=== PATIENT | female | born 1945 | race African-American/Black ===

== ENCOUNTER 2018-05-11 10:52 | Inpatient (IN) | payer OTHER ==
[2018-05-11 11:25] VITALS: BMI 21.1
--- NOTE | 2018-05-11 12:47 | PDOC ---
History of Present Illness - General Chief Complaint: Injury Stated Complaint: Altered Mental Status Time Seen by Provider: 05/11/18 11:31 - History of Present Illness Initial Comments: Marisol Barba is a 73yo woman with a PMH of HTN, DM, schizophrenia, GERD, Parkinson's, facial dystonia, and seizures who presents from [facility] following a seizure today. Per notes from [facility] and EMS, she has been refusing her medications recently and apparently had a witnessed seizure. Ms Barba states that she has no idea why she was brought to the hospital though she is a poor historian. She says that she went out to smoke this morning, and while trying to light a 2nd cigarette from the first noticed that her hand/arm was shaking. She went inside and remembers asking for some ice water. The next thing she remembers is laying on her bed with EMS and SNF staff around her. Ms Barba denies any recent symptoms. She reports that she has no health problems at baseline and has not had a seizure in "many years." Past History - Past Medical History Allergies/Adverse Reactions: Allergies Allergy/AdvReac Type Severity Reaction Status Date / Time No Known Drug Allergies Allergy Verified 05/11/18 11:19 Home Medications: Ambulatory Orders Acetaminophen [Tylenol Regular Strength -] 325 mg PO Q6H PRN 11/27/12 Amlodipine Besylate [Norvasc -] 5 mg PO DAILY 11/27/12 Aspirin 81 mg PO DAILY 11/27/12 Carbidopa/Levodopa 25/100 [Sinemet 25/100 -] 1 each PO BID 11/27/12 Docusate Sodium [Colace -] 300 mg PO HS PRN 11/27/12 Entacapone [Comtan -] 200 mg PO BID 11/27/12 Escitalopram Oxalate [Lexapro -] 20 mg PO DAILY 11/27/12 Magnesium Hydrox 2400MG/30Ml [Milk Of Magnesia] 400 mg PO DAILY PRN 11/27/12 Meclizine HCl [Antivert -] 25 mg PO BID 11/27/12 Phenytoin Na Extended [Dilantin -] 100 mg PO TID 11/27/12 Polyethylene Glycol/Polyvinyl [Hypotears Eye Drops] 15 ml OP BID 11/27/12 Saxagliptin HCl/Metformin HCl [Kombiglyze Xr 2.5-1,000 mg Tab] 100 mg PO DAILY 11/27/12 Trihexyphenidyl HCl [Artane] 2 mg PO TID 11/27/12 cloNIDine HCL [Catapres -] 0.1 mg PO DAILY 11/27/12 levETIRAcetam [Keppra -] 1,000 mg PO DAILY 03/30/13 Anemia: Yes Cardiac Disorders: Yes COPD: No Diabetes: Yes (type 2) GI Disorders: Yes (GERD,CONSTIPATION) HTN: Yes Psychiatric Problems: Yes (SCHIZOPHRENIA) Seizures: Yes Other medical history: parkinsons - Immunization History Td Vaccination: Yes TDAP Vaccination: Yes Immunization Up to Date: Yes - Suicide/Smoking/Psychosocial Hx Smoking Status: No Smoking History: Never smoked Have you smoked in the past 12 months: No Information on smoking cessation initiated: No Hx Alcohol Use: No Drug/Substance Use Hx: No Review of Systems - Review of Systems Comments:: 05/11/18 12:47 Could not accurately obtain; denies any health problems *Physical Exam - Vital Signs Last Vital Signs Temp Pulse Resp BP Pulse Ox 99.5 F 95 H 18 177/99 H 99 05/11/18 11:01 05/11/18 11:01 05/11/18 11:01 05/11/18 11:01 05/11/18 11:01 - Physical Exam Comments: General: No acute distress, generalized continuos body movements. HEENT: PERRL, EOMI, dry lips, voice normal. Orofacial movements c/w tardive dyskinesia Cards: RRR, no murmur appreciated Pulm: Comfortable on room air, clear to auscultation bilaterally Abd: Soft, nontender, nondistended Ext: Atraumatic. No LE edema. Moves all extremities Vasc: Extremities WWP Skin: Normal color, no rashes or lesions Neuro: Alert, responsive, normal speech, motor/sensory grossly intact and symmetric Psych: Volatile, becomes angry/upset quickly ED Treatment Course - LABORATORY CBC & Chemistry Diagram: 05/11/18 15:07 05/11/18 13:18 - RADIOLOGY Radiology Studies Ordered: Category Date Time Status CERVICAL SPINE CT W/O CONTR [CT] Stat CT Scan 05/11/18 12:[address] WITHOUT CONTRAST [CT] Stat CT Scan 05/11/18 12:37 Ordered CHEST X-RAY PORTABLE* [RAD] Stat Radiology 05/11/18 12:37 Ordered Medical Decision Making - Medical Decision Making 05/11/18 12:38 Marisol Barba is a 73yo woman with a PMH of HTN, DM, schizophrenia, GERD, Parkinson's, facial dystonia, and seizures who presents from [facility] following a seizure today. Per the SNF, she has been refusing her medications. - Reported seizure likely due to medication noncompliance; per records is prescribed keppra 1000mg daily. Not enough information at this time to determine that she did have a seizure, may have been syncope or a fall for another reason. - No visible injury. Will CT head, c-spine to r/o - CBC, CMP, EKG, trop, coags, UA, CXR for evaluation - Will contact PMD 05/11/18 15:29 - Multiple attempts made to place an IV by nurse Peters, by me under ultrasound guidance, and by Dr Dias under US guidance. 20g IV eventually placed in left upper arm, blood sent to lab - IV infiltrated when attempt made to give IVF and IV acetaminophen - PO acetaminophen ordered. Given water for oral hydration 05/11/18 16:27 - Labs reviewed. Notable for slightly elevated trop at 0.12. No other concerning abnormalities. Trop may be elevated due to seizure, elevated HR at 95 (likely due to fever 101.8), or possibly pt's baseline - there are no other values recorded. - CT head/c-spine and CXR reviewed. No acute abnormalities appreciated. Radiology read pending - Plan to admit for additional management. 05/11/18 17:24 - Spoke to BOOKER Cordon for admission. Will accept to Dr Willoughby's service. - 5mg IM haldol and 2mg IM ativan for agitation during additional attempt to place IV Discussed with Dr Chester. Alma Shea PGY1 *DC/Admit/Observation/Transfer Diagnosis at time of Disposition: Seizure, Fever, Elevated troponin - Discharge Dispostion Decision to Admit order: Yes - Referrals Referrals: Maninder Willoughby MD [Primary Care Provider] - - Patient Instructions - Post Discharge Activity
--- NOTE | 2018-05-11 13:19 | PDOC ---
Attending Attestation - HPI HPI: 05/11/18 13:24 Patient is a 73 year old female with a significant past medical history of Anemia, Diabetes, HTN, Schizophrenia, Seizures, Parkinsons who presents to the ED with complaints of seizure episode that occurred earlier this morning. As per [facility] staff, patient has currently been non compliant with her medications for multiple days. Patient reports being outside trying to smoke when she noticed a slight tremor in her right arm. She reports walking inside when she was suddenly laying on her bed surrounded by staff and EMS. As per staff, patient was sent into the ED for further evaluation and psych evaluation. Denies chest pain, sob. Denies nausea, vomiting. Denies fevers, chills. Denies diarrhea, constipation. Denies dysuria, hematuria. Denies contact with sick individuals, out of state travelling. Denies any other symptoms. Allergies: NKDA Social history: Lives at [facility]. Current smoker. No alcohol. No illicit drugs. Surgical history: None PMD: Dr. Gisell Santacruz <Parrish Fox - Last Filed: 05/11/18 13:24> - Resident Resident Name: Alma Shea - ED Attending Attestation I have performed the following: I have examined & evaluated the patient, The case was reviewed & discussed with the resident, I agree w/resident's findings & plan, Exceptions are as noted - Physicial Exam PE: 05/11/18 13:18 GENERAL: The patient is in no acute distress, (+) involuntary movement of her neck and face. ENT: Ears normal, nares patent, oropharynx clear without exudates. Dry mucous membranes. NECK: Normal range of motion, supple, no nuchal rigidity LUNGS: Breath sounds equal, clear to auscultation bilaterally. No wheezes, and no crackles. HEART:Regular rate and rhythm, normal S1 and S2 without murmur, rub or gallop. ABDOMEN: Soft, nontender, normoactive bowel sounds. EXTREMITIES: Normal range of motion, no edema. NEUROLOGICAL: Cranial nerves II through XII grossly intact. Normal speech. No focal neurological deficits. SKIN: Warm, Dry, normal turgor, no rashes or lesions noted. - Medical Decision Making 05/11/18 13:13 Pt found to have a fever today Will do sepsis work up Pt has limited ability to give a history Briefly, she has been refusing her medications She reportedly has a seizure today Pt has no memory of this Pt has no complaints at this time 05/11/18 15:44 Laboratory Tests 03/30/13 05/11/18 05/11/18 14:00 13:18 14:49 WBC 7.6 Hgb 11.5 D Hct 35.5 Plt Count 385 D Sodium 140 Potassium 4.7 Chloride 108 H Carbon Dioxide 24 BUN 16 Creatinine 0.9 Random Glucose 118 H Troponin I 0.12 H Urine Blood Negative Urine Nitrite Negative Ur Leukocyte Esterase Negative 05/11/18 15:07 WBC 6.6 Hgb 10.6 L Hct 32.9 Plt Count 302 D Sodium Potassium Chloride Carbon Dioxide BUN Creatinine Random Glucose Troponin I Urine Blood Urine Nitrite Ur Leukocyte Esterase 05/11/18 16:35 Very difficult access Will try again Access obtained Pt persuaded to stay in the hospital for further observation Clinical impression: Seizure, initial presentation Fever, initial presentation Elevated troponin, initial presentation <Lucrecia Chester - Last Filed: 05/14/18 12:40>
[2018-05-11 13:47] LABS: INR 0.93 (0.83-1.09)
[2018-05-11 13:49] LABS: ACTIVATED PTT 20.5 SECONDS (25.2-36.5)
[2018-05-11 14:02] LABS: ALBUMIN 4.2 g/dl (3.4-5.0); ALK PHOS 57 U/L (45-117); ANION GAP 8 MMOL/L (8-16); BILIRUBIN,TOTAL 0.2 mg/dL (0.2-1); BLOOD UREA NITROGEN 16 mg/dL (7-18); CHLORIDE 108 mmol/L (98-107); CO2 24 mmol/L (21-32); CREATININE 0.9 mg/dL (0.55-1.3); GLUCOSE,RANDOM 118 mg/dL (74-106); POTASSIUM 4.7 mmol/L (3.5-5.1); SGOT/AST 14 U/L (15-37); SGPT/ALT 11 U/L (13-61); SODIUM 140 mmol/L (136-145); TOT PROT 7.3 g/dl (6.4-8.2)
--- NOTE | 2018-05-11 15:16 | EKG ---
Test Reason : Blood Pressure : / mmHG Vent. Rate : 092 BPM Atrial Rate : 092 BPM P-R Int : 168 ms QRS Dur : 082 ms QT Int : 332 ms P-R-T Axes : 075 064 062 degrees QTc Int : 410 ms POOR DATA QUALITY, INTERPRETATION MAY BE ADVERSELY AFFECTED NORMAL SINUS RHYTHM MINIMAL VOLTAGE CRITERIA FOR LVH, MAY BE NORMAL VARIANT POSSIBLE ANTERIOR INFARCT , AGE UNDETERMINED ABNORMAL ECG WHEN COMPARED WITH ECG OF 13-NOV-2000 15:54, T WAVE AMPLITUDE HAS DECREASED IN LATERAL LEADS Confirmed by GREY MOTLEY, CAROLINE ([id number]) on 05/11/2018 3:16:09 PM Referred By: Confirmed By:CAROLINE EDMONDS MD
[2018-05-11 15:17] LABS: URINE APPEARANCE CLEAR; URINE BILIRUBIN NEGATIVE (NEGATIVE); URINE COLOR YELLOW; URINE GLUCOSE (UA) NEGATIVE (NEGATIVE); URINE KETONE NEGATIVE (NEGATIVE)
[2018-05-11 15:18] LABS: URINE LEUK ESTERASE NEGATIVE (NEGATIVE); URINE NITRITE NEGATIVE (NEGATIVE); URINE PROTEIN 1+ (NEGATIVE); URINE UROBILINOGEN 0.2 mg/dL (0.2-1.0)
[2018-05-11] MEDS ORDERED: ACETAMINOPHEN INJECTION 100 ML IVPB ONE (15:20)
[2018-05-11 15:21] LABS: EPI CELLS 0.4 /HPF (0-5); URINE BACTERIA 0.5 /hpf (NEGATIVE); URINE CASTS 1 /hpf (0-8); URINE RBC 2 /hpf (0-4); URINE WBC 1 /hpf (0-5)
[2018-05-11] MEDS ORDERED: ACETAMINOPHEN 1000 MG/100 ML VIAL (NON FORMULARY) IVPB ONE (15:22)
[2018-05-11] MEDS ORDERED: SODIUM CHLORIDE 0.9% 500 ML INFUS.BAG IV ONE (15:22)
[2018-05-11 15:23] LABS: VENOUS PC02 43.3 mmHg (41-51); VENOUS PH 7.39 (7.31-7.41); VENOUS PO2 32.9 mmHg (30-40)
[2018-05-11 15:24] LABS: BASO % 1.4 % (0-2.0); EOS % 0.2 % (0-4.5); HEMATOCRIT 32.9 % (32.4-45.2); HEMOGLOBIN 10.6 GM/dL (10.7-15.3); LYMPH % 20.8 % (8-40); MCH 29.8 pg (25.7-33.7); MCHC 32.3 g/dl (32.0-36.0); MEAN CELL VOLUME 92.3 fl (80-96); MEAN PLT VOLUME 7.9 fl (7.5-11.1); MONO % 6.8 % (3.8-10.2); NEUT % 70.8 % (42.8-82.8); PLATELET COUNT 302 K/MM3 (134-434); RBC 3.57 M/mm3 (3.60-5.2); RDW 13.5 % (11.6-15.6); WHITE BLOOD COUNT 6.6 K/mm3 (4.0-10.0)
[2018-05-11] MEDS ORDERED: ACETAMINOPHEN 325 MG TABLET (FP) PO ONE (15:33)
[2018-05-11] MEDS ORDERED: ACETAMINOPHEN 325 MG TABLET (FP) ONE (15:37)
[2018-05-11] MEDS ORDERED: HALOPERIDOL LACTATE 5 MG/ML IM ONE (17:05)
--- NOTE | 2018-05-11 19:21 | HP ---
CHIEF COMPLAINT: Seizure PCP: Dr. Willoughby HISTORY OF PRESENT ILLNESS: This is a 73-year-old [facility] resident with HTN, NIDDM, schizophrenia, Parkinson's disease, current cigarette smoking, and seizures who presents from [facility] following a seizure today. Per notes from [facility] and EMS, she has been refusing her medications recently and apparently had a witnessed seizure. The patient states that she does not know when she last had a seizure, but believes it was a long time ago. She complains of mild headache, but otherwise feels well. ER course was notable for: (1) CT rain: No evidence of acute intracranial pathology. Mild ventricular dilatation, central atrophy v. NPH (2) CT cervical spine: C4-5 disc herniation of indeterminate age (3) CXR: Clear lungs (4) Troponin 0.12 (5) Temp 101.8, HR 95 (6) UA neg for leukocyte esterase Recent Travel: None Social History: Smoking: Smokes 6 cigarettes daily Alcohol: Denies Drugs: Denies Family History: Non-contributory to this admission Allergies No Known Drug Allergies Allergy (Verified 05/11/18 11:19) HOME MEDICATIONS: Home Medications Medication Instructions Recorded Acetaminophen [Tylenol Regular 325 mg PO Q6H PRN 11/27/12 Strength -] Amlodipine Besylate [Norvasc -] 5 mg PO DAILY 11/27/12 Aspirin 81 mg PO DAILY 11/27/12 Carbidopa/Levodopa 25/100 [Sinemet 1 each PO BID 11/27/12 25/100 -] Docusate Sodium [Colace -] 300 mg PO HS PRN 11/27/12 Entacapone [Comtan -] 200 mg PO BID 11/27/12 Escitalopram Oxalate [Lexapro -] 20 mg PO DAILY 11/27/12 Magnesium Hydrox 2400MG/30Ml [Milk 400 mg PO DAILY PRN 11/27/12 Of Magnesia] Meclizine HCl [Antivert -] 25 mg PO BID 11/27/12 Phenytoin Na Extended [Dilantin -] 100 mg PO TID 11/27/12 Polyethylene Glycol/Polyvinyl 15 ml OP BID 11/27/12 [Hypotears Eye Drops] Saxagliptin HCl/Metformin HCl 100 mg PO DAILY 11/27/12 [Kombiglyze Xr 2.5-1,000 mg Tab] Trihexyphenidyl HCl [Artane] 2 mg PO TID 11/27/12 cloNIDine HCL [Catapres -] 0.1 mg PO DAILY 11/27/12 levETIRAcetam [Keppra -] 1,000 mg PO DAILY 03/30/13 Alendronate Sodium/Vitamin D3 1 each PO Q7D 05/11/18 [Fosamax Plus D 70 mg-5,600 Iu vIT d] Ergocalciferol (Vitamin D2) 50,000 unit PO 05/11/18 [Vitamin D2] Glipizide 5 mg PO DAILY 05/11/18 Mag Hydrox/Aluminum Hyd/Simeth 200 mg PO TID 05/11/18 [[place] Liquid] Metformin HCl [Glucophage] 1,000 mg PO BID 05/11/18 Sitagliptin Phosphate [Januvia] 100 mg PO DAILY 05/11/18 levETIRAcetam [Keppra -] 500 mg PO HS 05/11/18 REVIEW OF SYSTEMS CONSTITUTIONAL: Absent: fever, chills, diaphoresis, generalized weakness, malaise, loss of appetite, weight change HEENT: Absent: rhinorrhea, nasal congestion, throat pain, throat swelling, difficulty swallowing, mouth swelling, ear pain, eye pain, visual changes CARDIOVASCULAR: Absent: chest pain, syncope, palpitations, irregular heart rate, lightheadedness , peripheral edema RESPIRATORY: Absent: cough, shortness of breath, dyspnea with exertion, orthopnea, wheezing, stridor, hemoptysis GASTROINTESTINAL: Absent: abdominal pain, abdominal distension, nausea, vomiting, diarrhea, constipation, melena, hematochezia GENITOURINARY: Absent: dysuria, frequency, urgency, hesitancy, hematuria, flank pain, genital pain MUSCULOSKELETAL: Absent: myalgia, arthralgia, joint swelling, back pain, neck pain SKIN: Absent: rash, itching, pallor HEMATOLOGIC/IMMUNOLOGIC: Absent: easy bleeding, easy bruising, lymphadenopathy, frequent infections ENDOCRINE: Absent: unexplained weight gain, unexplained weight loss, heat intolerance, cold intolerance NEUROLOGIC: Absent: headache, focal weakness or paresthesias, dizziness, unsteady gait, seizure, mental status changes, bladder or bowel incontinence PSYCHIATRIC: Absent: anxiety, depression, suicidal or homicidal ideation, hallucinations. PHYSICAL EXAMINATION Vital Signs - 24 hr 05/11/18 05/11/18 05/11/18 11:01 12:59 18:07 Temperature 99.5 F 101.8 F H 99.5 F Pulse Rate 95 H Respiratory 18 Rate Blood Pressure 177/99 H O2 Sat by Pulse 99 Oximetry (%) GENERAL: Awake, alert, oriented to person and place, no distress. EYES: Pupils equal, round and reactive to light, extraocular movements intact, sclera anicteric, conjunctiva clear. No lid lag. EARS, NOSE, THROAT: Ears normal, nares patent, oropharynx clear without exudates. Moist mucous membranes. NECK: Normal range of motion, supple without lymphadenopathy, JVD, or masses. LUNGS: Breath sounds equal, clear to auscultation bilaterally. No wheezes, and no crackles. No accessory muscle use. HEART: Regular rate and rhythm, normal S1 and S2 without murmur, rub or gallop. ABDOMEN: Soft, nontender, not distended, normoactive bowel sounds, no guarding, no rebound, no masses. No hepatomegaly or splenomegaly. MUSCULOSKELETAL: Normal range of motion at all joints. No bony deformities or tenderness. No CVA tenderness. UPPER EXTREMITIES: 2+ pulses, warm, well-perfused. No cyanosis. No clubbing. No peripheral edema. LOWER EXTREMITIES: 2+ pulses, warm, well-perfused. No calf tenderness. No peripheral edema. NEUROLOGICAL: Facial dystonia. Cranial nerves II-XII intact. Normal speech. PSYCHIATRIC: Cooperative. Appropriate mood and affect. SKIN: Warm, dry, normal turgor, small abrasion above left eyebrow. Laboratory Results - last 24 hr 05/11/18 05/11/18 05/11/18 13:18 13:18 14:49 WBC RBC Hgb Hct MCV MCH MCHC RDW Plt Count MPV Absolute Neuts (auto) Neutrophils % Lymphocytes % Monocytes % Eosinophils % Basophils % Nucleated RBC % PT with INR 11.00 INR 0.93 PTT (Actin FS) 20.5 L VBG pH POC VBG pCO2 POC VBG pO2 VBG HCO3 VBG O2 Sat (Tony) VBG Base Excess Sodium 140 Potassium 4.7 Chloride 108 H Carbon Dioxide 24 Anion Gap 8 BUN 16 Creatinine 0.9 Creat Clearance w eGFR 61.55 Random Glucose 118 H Lactic Acid Calcium 9.0 Total Bilirubin 0.2 AST 14 L ALT 11 L Alkaline Phosphatase 57 Creatine Kinase 127 Troponin I 0.12 H Total Protein 7.3 Albumin 4.2 Urine Color Yellow Urine Appearance Clear Urine pH 6.0 Ur Specific Hollis 1.015 Urine Protein 1+ H Urine Glucose (UA) Negative Urine Ketones Negative Urine Blood Negative Urine Nitrite Negative Urine Bilirubin Negative Urine Urobilinogen 0.2 Ur Leukocyte Esterase Negative Urine WBC (Auto) 1 Urine RBC (Auto) 2 Urine Casts (Auto) 1 U Epithel Cells (Auto) 0.4 Urine Bacteria (Auto) 0.5 05/11/18 05/11/18 05/11/18 15:07 15:07 15:07 WBC 6.6 RBC 3.57 L Hgb 10.6 L Hct 32.9 MCV 92.3 MCH 29.8 MCHC 32.3 RDW 13.5 Plt Count 302 D MPV 7.9 Absolute Neuts (auto) 4.7 Neutrophils % 70.8 Lymphocytes % 20.8 D Monocytes % 6.8 Eosinophils % 0.2 Basophils % 1.4 Nucleated RBC % 0 PT with INR INR PTT (Actin FS) VBG pH 7.39 POC VBG pCO2 43.3 POC VBG pO2 32.9 VBG HCO3 25.4 VBG O2 Sat (Tony) 57.3 L VBG Base Excess 0.7 Sodium Potassium Chloride Carbon Dioxide Anion Gap BUN Creatinine Creat Clearance w eGFR Random Glucose Lactic Acid 1.0 Calcium Total Bilirubin AST ALT Alkaline Phosphatase Creatine Kinase Troponin I Total Protein Albumin Urine Color Urine Appearance Urine pH Ur Specific Hollis Urine Protein Urine Glucose (UA) Urine Ketones Urine Blood Urine Nitrite Urine Bilirubin Urine Urobilinogen Ur Leukocyte Esterase Urine WBC (Auto) Urine RBC (Auto) Urine Casts (Auto) U Epithel Cells (Auto) Urine Bacteria (Auto) ASSESSMENT/PLAN: 73-year-old female s/p seizure with elevated troponin level. Problem List - Problem (1) Seizure Assessment/Plan: -Continue Keppra -Per SNF records and RN patient no longer on Dilantin -Send serum AED levels -Seizure precautions Code(s): R56.9 - UNSPECIFIED CONVULSIONS (2) Elevated troponin Assessment/Plan: -Not consistent with acute coronary syndrome, more likely secondary to seizure/ demand -Trend trops q8h -Monitor on telemetry -IV hydration -ASA 81mg daily Code(s): R74.8 - ABNORMAL LEVELS OF OTHER SERUM ENZYMES (3) Fever Assessment/Plan: -No clear infectious source, ?secondary to post-ictal state -Follow up blood and urine cultures -Trend temp/WBC Code(s): R50.9 - FEVER, UNSPECIFIED (4) Hypertension Assessment/Plan: -Above goal -Per SNF documentation and conversation with RN Vicki, patient no longer receiving any HTN meds because she refuses -Will attempt to resume amlodipine 5mg which patient was previously on Code(s): I10 - ESSENTIAL (PRIMARY) HYPERTENSION (5) Parkinson disease Assessment/Plan: -No meds per records/RN Code(s): G20 - PARKINSON'S DISEASE (6) DVT prophylaxis Assessment/Plan: -Moderate risk -Enoxaparin Code(s): ZDC0123 - Visit type - Emergency Visit Emergency Visit: Yes ED Registration Date: 05/11/18 Care time: The patient presented to the Emergency Department on the above date and was hospitalized for further evaluation of their emergent condition. - New Patient This patient is new to me today: Yes Date on this admission: 05/11/18 - Critical Care Critical Care patient: No
[2018-05-11] MEDS ORDERED: ACETAMINOPHEN 325 MG TABLET (FP) PO PRN (19:52)
[2018-05-11] MEDS ORDERED: ONDANSETRON 4 MG/2 ML VIAL IVPUSH PRN (19:52)
[2018-05-11] MEDS ORDERED: DOCUSATE SODIUM 100 MG CAPSULE (FP) PO PRN (19:57)
[2018-05-11] MEDS ORDERED: metFORMIN HCL 500 MG TABLET (FP) PO SCH (20:15)
[2018-05-11] MEDS ORDERED: metFORMIN HCL 500 MG TABLET (FP) ONE (20:35)
[2018-05-11] MEDS ORDERED: SODIUM CHLORIDE 1,000 ML IV SCH (21:45)
[2018-05-11] MEDS ORDERED: PHENYTOIN NA EXTENDED 100 MG CAPSULE (FP) PO SCH (22:00)
[2018-05-11] MEDS ORDERED: MECLIZINE HCL 25 MG TABLET (FP) PO SCH (22:00)
[2018-05-11] MEDS ORDERED: CARBIDOPA/LEVODOPA 25/100 TABLET (FP) PO SCH (22:00)
[2018-05-11] MEDS ORDERED: levETIRAcetam 500 MG TABLET (FP) PO SCH (22:00)
[2018-05-11] MEDS: BACITRACIN 15 GM TUBE TOPICAL OINTMENT TP SCH (23:25)
[2018-05-11] MEDS: ENTACAPONE 200 MG TABLET PO SCH (23:26)
[2018-05-11] MEDS: TRIHEXYPHENIDYL HCL 2 MG TABLET PO SCH (23:26)
[2018-05-11] MEDS: ARTIFICIAL TEARS (POLYVINYL ALCOHOL) OPTH DROPS OU SCH (23:39)
[2018-05-12] MEDS: TRIHEXYPHENIDYL HCL 2 MG TABLET PO SCH (06:51)
[2018-05-12] MEDS ORDERED: PT OWN MED DRAWER 7, Y5N ONE ×2 (06:59→11:22)
[2018-05-12] MEDS ORDERED: sitaGLIPtin PHOSPHATE 100 MG TABLET (FP) PO SCH (07:00)
[2018-05-12] MEDS ORDERED: glipiZIDE 5 MG TABLET (FP) PO SCH (07:00)
[2018-05-12 07:49] LABS: BASO % 3.3 % (0-2.0); EOS % 2.1 % (0-4.5); HEMATOCRIT 32.1 % (32.4-45.2); HEMOGLOBIN 10.4 GM/dL (10.7-15.3); LYMPH % 38.6 % (8-40); MCH 29.9 pg (25.7-33.7); MCHC 32.3 g/dl (32.0-36.0); MEAN CELL VOLUME 92.6 fl (80-96); MEAN PLT VOLUME 8.6 fl (7.5-11.1); PLATELET COUNT 263 K/MM3 (134-434); RBC 3.46 M/mm3 (3.60-5.2); RDW 13.3 % (11.6-15.6); WHITE BLOOD COUNT 4.5 K/mm3 (4.0-10.0)
[2018-05-12 08:29] LABS: ALBUMIN 3.8 g/dl (3.4-5.0); ALK PHOS 56 U/L (45-117); ANION GAP 9 MMOL/L (8-16); BILIRUBIN,TOTAL 0.9 mg/dL (0.2-1); BLOOD UREA NITROGEN 15 mg/dL (7-18); CALCIUM 8.2 mg/dL (8.5-10.1); CHLORIDE 108 mmol/L (98-107); CO2 24 mmol/L (21-32); CREATININE 0.8 mg/dL (0.55-1.3); GLUCOSE,RANDOM 90 mg/dL (74-106); MAGNESIUM 1.9 mg/dL (1.8-2.4); POTASSIUM 4.2 mmol/L (3.5-5.1); SGOT/AST 14 U/L (15-37); SGPT/ALT 12 U/L (13-61); SODIUM 141 mmol/L (136-145); TOT PROT 6.7 g/dl (6.4-8.2)
[2018-05-12] MEDS ORDERED: amLODIPine BESYLATE 5 MG TABLET (FP) PO SCH (10:00)
[2018-05-12] MEDS ORDERED: ESCITALOPRAM OXALATE 20 MG TABLET (FP) PO SCH (10:00)
[2018-05-12] MEDS ORDERED: ASPIRIN 81 MG CHEWABLE TABLETS PO SCH (10:00)
[2018-05-12] MEDS ORDERED: levETIRAcetam 500 MG TABLET (FP) PO SCH (10:00)
[2018-05-12] MEDS ORDERED: cloNIDine HCL 0.1 MG TABLET PO SCH (10:00)
--- NOTE | 2018-05-12 10:08 | PN ---
Progress Note (short form) - Note Progress Note: Events noted awake and alert c/o pain in gums pt refuses her meds in [facility] No headaches Noted elevated temps Vital Signs - 24 hr 05/11/18 05/11/18 05/11/18 12:59 18:07 19:15 Temperature 101.8 F H 99.5 F Pulse Rate Pulse Rate [ 77 Apical] Respiratory 20 Rate Blood Pressure Blood Pressure 152/78 [Right Arm] O2 Sat by Pulse 99 Oximetry (%) 05/11/18 05/11/18 05/12/18 19:38 21:00 01:55 Temperature 98.8 F 98.2 F Pulse Rate 72 65 Pulse Rate [ Apical] Respiratory 18 18 Rate Blood Pressure 137/81 134/67 Blood Pressure [Right Arm] O2 Sat by Pulse 99 98 Oximetry (%) 05/12/18 05:00 Temperature 98.4 F Pulse Rate 69 Pulse Rate [ Apical] Respiratory 18 Rate Blood Pressure 127/63 Blood Pressure [Right Arm] O2 Sat by Pulse Oximetry (%) Current Medications Generic Name Dose Route Start Last Admin Trade Name Freq PRN Reason Stop Dose Admin Acetaminophen 650 mg 05/11/18 19:52 05/12/18 06:50 Tylenol - PO 650 mg Q4H PRN Administration FEVER Amlodipine Besylate 5 mg 05/12/18 10:00 Norvasc - PO DAILY RUTHIE Artificial Tears 1 drop 05/11/18 22:00 05/11/18 23:39 Artificial Tears OU Not Given BID RUTHIE Aspirin 81 mg 05/12/18 10:00 Asa - PO DAILY RUTHIE Bacitracin 1 applic 05/11/18 23:15 05/11/18 23:25 Bacitracin - TP 1 applic BID RUTHIE Administration Docusate Sodium 300 mg 05/11/18 19:57 Colace - PO HS PRN CONSTIPATION Enoxaparin Sodium 40 mg 05/12/18 10:00 Lovenox - SQ DAILY RUTHIE Entacapone 200 mg 05/11/18 22:00 05/11/18 23:26 Comtan - PO 200 mg BID RUTHIE Administration Escitalopram Oxalate 20 mg 05/12/18 10:00 Lexapro - PO DAILY RUTHIE Glipizide 5 mg 05/12/18 07:00 Glucotrol - PO DAILY@0700 RUTHIE Sodium Chloride 1,000 mls @ 83 mls/hr 05/11/18 21:45 04/03/19 23:24 Normal Saline - IV 83 mls/hr ASDIR RUTHIE Administration Metronidazole 500 mg in 100 mls @ 100 mls/hr 05/12/18 10:15 Flagyl 500mg Premixed Ivpb - IVPB Q8H-IV RUTHIE Levetiracetam 500 mg 05/11/18 22:00 05/11/18 23:25 Keppra - PO 500 mg HS RUTHIE Administration Levetiracetam 1,000 mg 05/12/18 10:00 Keppra - PO DAILY RUTHIE Metformin HCl 1,000 mg 05/11/18 20:15 05/11/18 20:53 Glucophage - PO 1,000 mg BIDAC RUTHIE Administration Ondansetron HCl 4 mg 05/11/18 19:52 Zofran Injection IVPUSH Q6H PRN NAUSEA Sitagliptin Phosphate 100 mg 05/12/18 07:00 Januvia - PO DAILY@0700 RUTHIE Trihexyphenidyl HCl 2 mg 05/11/18 22:00 05/12/18 06:51 Artane - PO 2 mg TID RUTHIE Administration Laboratory Results - last 24 hr 05/11/18 05/11/18 05/11/18 13:18 13:18 14:49 WBC RBC Hgb Hct MCV MCH MCHC RDW Plt Count MPV Absolute Neuts (auto) Neutrophils % Lymphocytes % Monocytes % Eosinophils % Basophils % Nucleated RBC % PT with INR 11.00 INR 0.93 PTT (Actin FS) 20.5 L VBG pH POC VBG pCO2 POC VBG pO2 VBG HCO3 VBG O2 Sat (Tony) VBG Base Excess Sodium 140 Potassium 4.7 Chloride 108 H Carbon Dioxide 24 Anion Gap 8 BUN 16 Creatinine 0.9 Creat Clearance w eGFR 61.55 POC Glucometer Random Glucose 118 H Lactic Acid Calcium 9.0 Magnesium Total Bilirubin 0.2 AST 14 L ALT 11 L Alkaline Phosphatase 57 Creatine Kinase 127 Troponin I 0.12 H Total Protein 7.3 Albumin 4.2 Urine Color Yellow Urine Appearance Clear Urine pH 6.0 Ur Specific [place] 1.015 Urine Protein 1+ H Urine Glucose (UA) Negative Urine Ketones Negative Urine Blood Negative Urine Nitrite Negative Urine Bilirubin Negative Urine Urobilinogen 0.2 Ur Leukocyte Esterase Negative Urine WBC (Auto) 1 Urine RBC (Auto) 2 Urine Casts (Auto) 1 U Epithel Cells (Auto) 0.4 Urine Bacteria (Auto) 0.5 Phenytoin 05/11/18 05/11/18 05/11/18 15:07 15:07 15:07 WBC 6.6 RBC 3.57 L Hgb 10.6 L Hct 32.9 MCV 92.3 MCH 29.8 MCHC 32.3 RDW 13.5 Plt Count 302 D MPV 7.9 Absolute Neuts (auto) 4.7 Neutrophils % 70.8 Lymphocytes % 20.8 D Monocytes % 6.8 Eosinophils % 0.2 Basophils % 1.4 Nucleated RBC % 0 PT with INR INR PTT (Actin FS) VBG pH 7.39 POC VBG pCO2 43.3 POC VBG pO2 32.9 VBG HCO3 25.4 VBG O2 Sat (Tony) 57.3 L VBG Base Excess 0.7 Sodium Potassium Chloride Carbon Dioxide Anion Gap BUN Creatinine Creat Clearance w eGFR POC Glucometer Random Glucose Lactic Acid 1.0 Calcium Magnesium Total Bilirubin AST ALT Alkaline Phosphatase Creatine Kinase Troponin I Total Protein Albumin Urine Color Urine Appearance Urine pH Ur Specific [place] Urine Protein Urine Glucose (UA) Urine Ketones Urine Blood Urine Nitrite Urine Bilirubin Urine Urobilinogen Ur Leukocyte Esterase Urine WBC (Auto) Urine RBC (Auto) Urine Casts (Auto) U Epithel Cells (Auto) Urine Bacteria (Auto) Phenytoin 05/12/18 05/12/18 05/12/18 05:30 05:30 05:30 WBC 4.5 RBC 3.46 L Hgb 10.4 L Hct 32.1 L MCV 92.6 MCH 29.9 MCHC 32.3 RDW 13.3 Plt Count 263 MPV 8.6 Absolute Neuts (auto) 2.0 Neutrophils % 45.0 D Lymphocytes % 38.6 D Monocytes % 11.0 H Eosinophils % 2.1 D Basophils % 3.3 H Nucleated RBC % 0 PT with INR INR PTT (Actin FS) VBG pH POC VBG pCO2 POC VBG pO2 VBG HCO3 VBG O2 Sat (Tony) VBG Base Excess Sodium 141 Potassium 4.2 Chloride 108 H Carbon Dioxide 24 Anion Gap 9 BUN 15 Creatinine 0.8 Creat Clearance w eGFR 70.51 POC Glucometer Random Glucose 90 Lactic Acid Calcium 8.2 L Magnesium 1.9 Total Bilirubin 0.9 AST 14 L ALT 12 L Alkaline Phosphatase 56 Creatine Kinase Troponin I 0.15 H Total Protein 6.7 Albumin 3.8 Urine Color Urine Appearance Urine pH Ur Specific [place] Urine Protein Urine Glucose (UA) Urine Ketones Urine Blood Urine Nitrite Urine Bilirubin Urine Urobilinogen Ur Leukocyte Esterase Urine WBC (Auto) Urine RBC (Auto) Urine Casts (Auto) U Epithel Cells (Auto) Urine Bacteria (Auto) Phenytoin < 0.4 L 05/12/18 06:46 WBC RBC Hgb Hct MCV MCH MCHC RDW Plt Count MPV Absolute Neuts (auto) Neutrophils % Lymphocytes % Monocytes % Eosinophils % Basophils % Nucleated RBC % PT with INR INR PTT (Actin FS) VBG pH POC VBG pCO2 POC VBG pO2 VBG HCO3 VBG O2 Sat (Tony) VBG Base Excess Sodium Potassium Chloride Carbon Dioxide Anion Gap BUN Creatinine Creat Clearance w eGFR POC Glucometer 95 Random Glucose Lactic Acid Calcium Magnesium Total Bilirubin AST ALT Alkaline Phosphatase Creatine Kinase Troponin I Total Protein Albumin Urine Color Urine Appearance Urine pH Ur Specific [place] Urine Protein Urine Glucose (UA) Urine Ketones Urine Blood Urine Nitrite Urine Bilirubin Urine Urobilinogen Ur Leukocyte Esterase Urine WBC (Auto) Urine RBC (Auto) Urine Casts (Auto) U Epithel Cells (Auto) Urine Bacteria (Auto) Phenytoin S1 s2 RRR Lungs clear Oral cavity-- no lesions, swelling noted Abd- soft, NT no edema PLAN r/o aspiration start Flagyl IV blood cultures pending urine culture negative currently afebrile Neurology and cardiology eval trend cardiac enzymes Problem List - Problems (1) Elevated troponin Code(s): R74.8 - ABNORMAL LEVELS OF OTHER SERUM ENZYMES (2) Fever Code(s): R50.9 - FEVER, UNSPECIFIED (3) Hypertension Code(s): I10 - ESSENTIAL (PRIMARY) HYPERTENSION (4) Parkinson disease Code(s): G20 - PARKINSON'S DISEASE (5) Seizure Code(s): R56.9 - UNSPECIFIED CONVULSIONS (6) Seizure disorder Code(s): G40.909 - EPILEPSY, UNSP, NOT INTRACTABLE, WITHOUT STATUS EPILEPTICUS
--- NOTE | 2018-05-12 11:22 | CON.CARD ---
Cardiology Consult (text) - Consultation Consultation Note: cc: seizure hpi: 73 f hx htn, parkinsons, seizures, dm, sent [facility] [place]. No cp sob palps dizzy loc pnd orthopnea le edema. Feeling well now. Elevated trop so cardio eval requested. pmh: per hpi psh: nc social: +tob fam: no premature cad ros: per hpi; no nvd fever; all others normal meds: Home Medications Medication Instructions Recorded Acetaminophen [Tylenol Regular 325 mg PO Q6H PRN 11/27/12 Strength -] Amlodipine Besylate [Norvasc -] 5 mg PO DAILY 11/27/12 Aspirin 81 mg PO DAILY 11/27/12 Carbidopa/Levodopa [Sinemet 1 each PO BID 11/27/12 -] Docusate Sodium [Colace -] 300 mg PO HS PRN 11/27/12 Entacapone [Comtan -] 200 mg PO BID 11/27/12 Escitalopram Oxalate [Lexapro -] 20 mg PO DAILY 11/27/12 Magnesium Hydrox 2400MG/30Ml [Milk 400 mg PO DAILY PRN 11/27/12 Of Magnesia] Meclizine HCl [Antivert -] 25 mg PO BID 11/27/12 Phenytoin Na Extended [Dilantin -] 100 mg PO TID 11/27/12 Polyethylene Glycol/Polyvinyl 15 ml OP BID 11/27/12 [Hypotears Eye Drops] Saxagliptin HCl/Metformin HCl 100 mg PO DAILY 11/27/12 [Kombiglyze Xr 2.5-1,000 mg Tab] Trihexyphenidyl HCl [Artane] 2 mg PO TID 11/27/12 cloNIDine HCL [Catapres -] 0.1 mg PO DAILY 11/27/12 levETIRAcetam [Keppra -] 1,000 mg PO DAILY 03/30/13 Alendronate Sodium/Vitamin D3 1 each PO Q7D 05/11/18 [Fosamax Plus D 70 mg-5,600 Iu vIT d] Ergocalciferol (Vitamin D2) 50,000 unit PO WEEKLY MDD WEEKLY 05/11/18 [Vitamin D2] ON WEDNESDAY Glipizide 5 mg PO DAILY 05/11/18 Mag Hydrox/Aluminum Hyd/Simeth 200 mg PO TID 05/11/18 [Kimber-[place] Liquid] Metformin HCl [Glucophage] 1,000 mg PO BID 05/11/18 Sitagliptin Phosphate [Januvia] 100 mg PO DAILY 05/11/18 levETIRAcetam [Keppra -] 500 mg PO HS 05/11/18 Vital Signs Period Temp Pulse Resp BP Sys/Talbert Pulse Ox Last 24 Hr 98.2 F-101.8 F 65-77 18-20 127-152/63-81 98-99 nad no jvd rrr s1s2 no mrg cta bl nl eff aaox3 no le e/c/c abd nt nd pos bs no jaundice diaphoresis pos dp pt no carotid bruits Laboratory Last Values WBC 4.5 K/mm3 (4.0-10.0) 05/12/18 05:30 RBC 3.46 M/mm3 (3.60-5.2) L 05/12/18 05:30 Hgb 10.4 GM/dL (10.7-15.3) L 05/12/18 05:30 Hct 32.1 % (32.4-45.2) L 05/12/18 05:30 MCV 92.6 fl (80-96) 05/12/18 05:30 MCH 29.9 pg (25.7-33.7) 05/12/18 05:30 MCHC 32.3 g/dl (32.0-36.0) 05/12/18 05:30 RDW 13.3 % (11.6-15.6) 05/12/18 05:30 Plt Count 263 K/MM3 (134-434) 05/12/18 05:30 MPV 8.6 fl (7.5-11.1) 05/12/18 05:30 Absolute Neuts (auto) 2.0 K/mm3 (1.5-8.0) 05/12/18 05:30 Neutrophils % 45.0 % (42.8-82.8) D 05/12/18 05:30 Lymphocytes % 38.6 % (8-40) D 05/12/18 05:30 Monocytes % 11.0 % (3.8-10.2) H 05/12/18 05:30 Eosinophils % 2.1 % (0-4.5) D 05/12/18 05:30 Basophils % 3.3 % (0-2.0) H 05/12/18 05:30 Nucleated RBC % 0 % (0-0) 05/12/18 05:30 PT with INR 11.00 SEC (9.7-13.0) 05/11/18 13:18 INR 0.93 (0.83-1.09) 05/11/18 13:18 PTT (Actin FS) 20.5 SECONDS (25.2-36.5) L 05/11/18 13:18 VBG pH 7.39 (7.31-7.41) 05/11/18 15:07 POC VBG pCO2 43.3 mmHg (41-51) 05/11/18 15:07 POC VBG pO2 32.9 mmHg (30-40) 05/11/18 15:07 VBG HCO3 25.4 mmol/L (23-29) 05/11/18 15:07 VBG O2 Sat (Tony) 57.3 % (70-80) L 05/11/18 15:07 VBG Base Excess 0.7 meq/l (-2-2) 05/11/18 15:07 Sodium 141 mmol/L (136-145) 05/12/18 05:30 Potassium 4.2 mmol/L (3.5-5.1) 05/12/18 05:30 Chloride 108 mmol/L (98-107) H 05/12/18 05:30 Carbon Dioxide 24 mmol/L (21-32) 05/12/18 05:30 Anion Gap 9 MMOL/L (8-16) 05/12/18 05:30 BUN 15 mg/dL (7-18) 05/12/18 05:30 Creatinine 0.8 mg/dL (0.55-1.3) 05/12/18 05:30 Creat Clearance w eGFR 70.51 (>60) 05/12/18 05:30 POC Glucometer 95 UNITS (80-120) 05/12/18 06:46 Random Glucose 90 mg/dL (74-106) 05/12/18 05:30 Lactic Acid 1.0 mmol/L (0.4-2.0) 05/11/18 15:07 Calcium 8.2 mg/dL (8.5-10.1) L 05/12/18 05:30 Magnesium 1.9 mg/dL (1.8-2.4) 05/12/18 05:30 Total Bilirubin 0.9 mg/dL (0.2-1) 05/12/18 05:30 AST 14 U/L (15-37) L 05/12/18 05:30 ALT 12 U/L (13-61) L 05/12/18 05:30 Alkaline Phosphatase 56 U/L (45-117) 05/12/18 05:30 Creatine Kinase 127 U/L (26-192) 05/11/18 13:18 Troponin I 0.15 ng/ml (0.00-0.05) H 05/12/18 05:30 Total Protein 6.7 g/dl (6.4-8.2) 05/12/18 05:30 Albumin 3.8 g/dl (3.4-5.0) 05/12/18 05:30 Urine Color Yellow 05/11/18 14:49 Urine Appearance Clear 05/11/18 14:49 Urine pH 6.0 (5.0-8.0) 05/11/18 14:49 Ur Specific [place] 1.015 (1.010-1.035) 05/11/18 14:49 Urine Protein 1+ (NEGATIVE) H 05/11/18 14:49 Urine Glucose (UA) Negative (NEGATIVE) 05/11/18 14:49 Urine Ketones Negative (NEGATIVE) 05/11/18 14:49 Urine Blood Negative (NEGATIVE) 05/11/18 14:49 Urine Nitrite Negative (NEGATIVE) 05/11/18 14:49 Urine Bilirubin Negative (NEGATIVE) 05/11/18 14:49 Urine Urobilinogen 0.2 mg/dL (0.2-1.0) 05/11/18 14:49 Ur Leukocyte Esterase Negative (NEGATIVE) 05/11/18 14:49 Urine WBC (Auto) 1 /hpf (0-5) 05/11/18 14:49 Urine RBC (Auto) 2 /hpf (0-4) 05/11/18 14:49 Urine Casts (Auto) 1 /hpf (0-8) 05/11/18 14:49 U Epithel Cells (Auto) 0.4 /HPF (0-5) 05/11/18 14:49 Urine Bacteria (Auto) 0.5 /hpf (NEGATIVE) 05/11/18 14:49 Phenytoin < 0.4 ug/ml (10.0-20.0) L 05/12/18 05:30 ecg: sr, nl intervals, no ischemic changes cxr: clear lungs tele: sr a/p: 73 f hx htn, parkinsons, seizures, dm, sent [facility]. seizure: -neuro eval pending htn: -cont ccb elevated trops: -borderline trop elevation with flat trend and nl ck, not c/w acs -ecg unremarkable -echo pending, if benign then no further cardiac testing needed at this time
[2018-05-12] MEDS: ARTIFICIAL TEARS (POLYVINYL ALCOHOL) OPTH DROPS OU SCH (13:03)
[2018-05-12] MEDS: BACITRACIN 15 GM TUBE TOPICAL OINTMENT TP SCH (13:04)
[2018-05-12] MEDS: ENTACAPONE 200 MG TABLET PO SCH (13:05)
[2018-05-12] MEDS: ENOXAPARIN NA (PORCINE) 40 MG/0.4 ML DISP.SYRIN SQ SCH ×2 (13:05→13:17)
--- NOTE | 2018-05-12 13:46 | ECHO ---
Name: BENEDICT GOMEZ Exam:Adult Echocardiogram Study Date: 05/12/2018 11:21 AM Age: 73 yrs Reason For Study: ELEVATED TROPONINS Height: 65 in Weight: 127 lb BSA: 1.6 m2 MMode/2D Measurements & Calculations IVSd: 0.94 cm Ao root diam: 2.6 cm LVIDd: 4.2 cm LA dimension: 3.1 cm LVIDs: 2.7 cm LVPWd: 0.81 cm EDV(Teich): 79.3 ml LVOT diam: 2.1 cm ESV(Teich): 26.7 ml TAPSE: 2.4 cm Doppler Measurements & Calculations MV E max josh: 63.7 cm/sec Ao V2 max: 152.9 cm/sec MV A max josh: 83.9 cm/sec Ao max P.4 mmHg MV E/A: 0.76 Ao V2 mean: 114.4 cm/sec MV dec time: 0.23 sec Ao mean P.7 mmHg Ao V2 VTI: 35.5 cm DEAN(I,D): 2.1 cm2 DEAN(V,D): 2.6 cm2 LV V1 max P.7 mmHg MR max josh: 365.0 cm/sec LV V1 mean P.2 mmHg MR max P.3 mmHg LV V1 max: 108.6 cm/sec LV V1 mean: 67.7 cm/sec LV V1 VTI: 21.0 cm SV(LVOT): 76.0 ml TR max josh: 216.2 cm/sec TR max P.7 mmHg Med Peak E' Josh: 4.8 cm/sec Med E/e': 13.4 Lat Peak E' Josh: 8.9 cm/sec Lat E/e': 7.2 Procedure A complete two-dimensional transthoracic echocardiogram was performed (2D, M-mode, Doppler and color flow Doppler). Left Ventricle The left ventricular size, thickness and function are normal. The left ventricular ejection fraction is normal. Ejection Fraction = 60-65%. The left ventricular wall motion is normal. Right Ventricle The right ventricle is normal in size and function. Atria Normal left and right atrial size and function. Mitral Valve There is trace mitral regurgitation. Tricuspid Valve There is trace tricuspid regurgitation. There was insufficient TR detected to calculate RV systolic p ressure. Aortic Valve No hemodynamically significant valvular aortic stenosis. No aortic regurgitation is present. Pulmonic Valve There is no pulmonic valvular regurgitation. Great Vessels The aortic root is normal size. Pericardium/Pleura There is no pericardial effusion. Interpretation Summary The left ventricular size, thickness and function are normal The right ventricle is normal in size and function. There is trace mitral regurgitation. There is trace tricuspid regurgitation. MD Saroj Lemus 05/12/2018 01:46 PM
--- NOTE | 2018-05-12 15:13 | DS ---
Physical Examination Vital Signs: Vital Signs Temperature 98.4 F 05/12/18 05:00 Pulse Rate 69 05/12/18 05:00 Respiratory Rate 18 05/12/18 05:00 Blood Pressure 127/63 05/12/18 05:00 O2 Sat by Pulse Oximetry (%) 98 05/11/18 21:00 Constitutional: Yes: No Distress, Calm Labs: CBC, BMP 05/12/18 05:30 05/12/18 05:30 Discharge Summary Reason For Visit: FEVER,SEIZURE,ELEVATED TROPONIN LEVEL Current Active Problems DVT prophylaxis (Acute) Elevated troponin (Acute) Fever (Acute) Hypertension (Acute) Parkinson disease (Acute) Seizure (Acute) Hospital Course: admitted for breakthrough seizures had elevated temps on admission cultures negative possible aspiration Seen by Cardiology for elevated troponins-- echo normal-- cardiac beasley stable Seen by Neurology-- Ct head negative-- continue with meds, spoke with Neurology Stable for dc to NH Condition: Stable - Instructions Disposition: [facility]ILITY - Home Medications Comprehensive Discharge Medication List: Ambulatory Orders Acetaminophen [Tylenol .Regular Strength -] 325 mg PO Q6H PRN 11/27/12 Amlodipine Besylate [Norvasc -] 5 mg PO DAILY 11/27/12 Aspirin 81 mg PO DAILY 11/27/12 Carbidopa/Levodopa 25/100 [Sinemet 25/100 -] 1 each PO BID 11/27/12 Docusate Sodium [Colace -] 300 mg PO HS PRN 11/27/12 Entacapone [Comtan -] 200 mg PO BID 11/27/12 Escitalopram Oxalate [Lexapro -] 20 mg PO DAILY 11/27/12 Magnesium Hydrox 2400MG/30Ml [Milk Of Magnesia] 400 mg PO DAILY PRN 11/27/12 Meclizine HCl [Antivert -] 25 mg PO BID 11/27/12 Phenytoin Na Extended [Dilantin -] 100 mg PO TID 11/27/12 Polyethylene Glycol/Polyvinyl [Hypotears Eye Drops] 15 ml OP BID 11/27/12 Saxagliptin HCl/Metformin HCl [Kombiglyze Xr 2.5-1,000 mg Tab] 100 mg PO DAILY 11/27/12 Trihexyphenidyl HCl [Artane -] 2 mg PO TID 11/27/12 cloNIDine HCL [Catapres -] 0.1 mg PO DAILY 11/27/12 levETIRAcetam [Keppra -] 1,000 mg PO DAILY 03/30/13 Alendronate Sodium/Vitamin D3 [Fosamax Plus D 70 mg-5,600 Iu vIT d] 1 each PO Q7D 05/11/18 Ergocalciferol (Vitamin D2) [Vitamin D2] 50,000 unit PO WEEKLY MDD WEEKLY ON Wednesday05/11/18 Glipizide 5 mg PO DAILY 05/11/18 Mag Hydrox/Aluminum Hyd/Simeth [Kimber-[place] Liquid] 200 mg PO TID 05/11/18 Metformin HCl [Glucophage] 1,000 mg PO BID 05/11/18 Sitagliptin Phosphate [Januvia] 100 mg PO DAILY 05/11/18 levETIRAcetam [Keppra -] 500 mg PO HS 05/11/18 metroNIDAZOLE [Metronidazole] 500 mg PO Q8H #9 tablet 05/12/18
--- NOTE | 2018-05-12 15:29 | CON.NEURO ---
Consult - Alcohol/Substance Use Hx Alcohol Use: No - Smoking History Smoking history: Never smoked Have you smoked in the past 12 months: No Home Medications - Allergies Allergies/Adverse Reactions: Allergies Allergy/AdvReac Type Severity Reaction Status Date / Time No Known Drug Allergies Allergy Verified 05/11/18 11:19 - Home Medications Home Medications: Ambulatory Orders Acetaminophen [Tylenol .Regular Strength -] 325 mg PO Q6H PRN 11/27/12 Amlodipine Besylate [Norvasc -] 5 mg PO DAILY 11/27/12 Aspirin 81 mg PO DAILY 11/27/12 Carbidopa/Levodopa 25/100 [Sinemet 25/100 -] 1 each PO BID 11/27/12 Docusate Sodium [Colace -] 300 mg PO HS PRN 11/27/12 Entacapone [Comtan -] 200 mg PO BID 11/27/12 Escitalopram Oxalate [Lexapro -] 20 mg PO DAILY 11/27/12 Magnesium Hydrox 2400MG/30Ml [Milk Of Magnesia] 400 mg PO DAILY PRN 11/27/12 Meclizine HCl [Antivert -] 25 mg PO BID 11/27/12 Phenytoin Na Extended [Dilantin -] 100 mg PO TID 11/27/12 Polyethylene Glycol/Polyvinyl [Hypotears Eye Drops] 15 ml OP BID 11/27/12 Saxagliptin HCl/Metformin HCl [Kombiglyze Xr 2.5-1,000 mg Tab] 100 mg PO DAILY 11/27/12 Trihexyphenidyl HCl [Artane -] 2 mg PO TID 11/27/12 cloNIDine HCL [Catapres -] 0.1 mg PO DAILY 11/27/12 levETIRAcetam [Keppra -] 1,000 mg PO DAILY 03/30/13 Alendronate Sodium/Vitamin D3 [Fosamax Plus D 70 mg-5,600 Iu vIT d] 1 each PO Q7D 05/11/18 Ergocalciferol (Vitamin D2) [Vitamin D2] 50,000 unit PO WEEKLY MDD WEEKLY ON Wednesday05/11/18 Glipizide 5 mg PO DAILY 05/11/18 Mag Hydrox/Aluminum Hyd/Simeth [Kim[place] Liquid] 200 mg PO TID 05/11/18 Metformin HCl [Glucophage] 1,000 mg PO BID 05/11/18 Sitagliptin Phosphate [Januvia] 100 mg PO DAILY 05/11/18 levETIRAcetam [Keppra -] 500 mg PO HS 05/11/18 metroNIDAZOLE [Metronidazole] 500 mg PO Q8H #9 tablet 05/12/18 Physical Exam-Neuro Vital Signs: Vital Signs Temperature 98.4 F 05/12/18 05:00 Pulse Rate 69 05/12/18 05:00 Respiratory Rate 18 05/12/18 05:00 Blood Pressure 127/63 05/12/18 05:00 O2 Sat by Pulse Oximetry (%) 98 05/11/18 21:00 Labs: CBC, BMP 05/12/18 05:30 05/12/18 05:30 INR, PTT INR 0.93 (0.83-1.09) 05/11/18 13:18 Assessment/Plan cc Breakthrough seizure HPI 73 year old female resident of [facility]. Patient has DM,HTN, Schizophrenia , ? PD and smoker. patient has episode of seizure , no details is available Patient has no denture and denies tongue bite and could not tell if there wa LOC.Apparenty she has been noncopliant with medication. She did had generalized tonic clonic seizure. She was found to have low grade fever and ct head is normal. Social History: Smoking: Smokes 6 cigarettes daily,Lives in [place], walks with walker and denies any substance abuse. FH non contributory NKDA A HOME MEDICATIONS: Home Medications Medication Instructions Recorded Acetaminophen [Tylenol Regular 325 mg PO Q6H PRN 11/27/12 Strength -] Amlodipine Besylate [Norvasc -] 5 mg PO DAILY 11/27/12 Aspirin 81 mg PO DAILY 11/27/12 Carbidopa/Levodopa 25/100 [Sinemet 1 each PO BID 11/27/12 25/100 -] Docusate Sodium [Colace -] 300 mg PO HS PRN 11/27/12 Entacapone [Comtan -] 200 mg PO BID 11/27/12 Escitalopram Oxalate [Lexapro -] 20 mg PO DAILY 11/27/12 Magnesium Hydrox 2400MG/30Ml [Milk 400 mg PO DAILY PRN 11/27/12 Of Magnesia] Meclizine HCl [Antivert -] 25 mg PO BID 11/27/12 Phenytoin Na Extended [Dilantin -] 100 mg PO TID 11/27/12 Polyethylene Glycol/Polyvinyl 15 ml OP BID 11/27/12 [Hypotears Eye Drops] Saxagliptin HCl/Metformin HCl 100 mg PO DAILY 11/27/12 [Kombiglyze Xr 2.5-1,000 mg Tab] Trihexyphenidyl HCl [Artane] 2 mg PO TID 11/27/12 cloNIDine HCL [Catapres -] 0.1 mg PO DAILY 11/27/12 levETIRAcetam [Keppra -] 1,000 mg PO DAILY 03/30/13 Alendronate Sodium/Vitamin D3 1 each PO Q7D 05/11/18 [Fosamax Plus D 70 mg-5,600 Iu vIT d] Ergocalciferol (Vitamin D2) 50,000 unit PO 05/11/18 [Vitamin D2] Glipizide 5 mg PO DAILY 05/11/18 Mag Hydrox/Aluminum Hyd/Simeth 200 mg PO TID 05/11/18 [[place] Liquid] Metformin HCl [Glucophage] 1,000 mg PO BID 05/11/18 Sitagliptin Phosphate [Januvia] 100 mg PO DAILY 05/11/18 levETIRAcetam [Keppra -] 500 mg PO HS 05/11/18 ROS reviewd in chart NEUROLOGICAL EXAMINATION Alert oriented x 3, speech is normal there is generalized dyskinesia wa seen , she has choreiform movement seen. There is no cogwheel rigidyt or badykinesia moving all ext sensaiton is normal ct head is normal Assessment; Breakthrough seizure due to noncompliance of medicaiton.Advice resume home medication , including keppra 500 mg po bid. THere is no need for further work up and she has no post ictal confusion at this time, I feel patient can be safely discharged. 2. Severe dyskinesia secondary to old antipsychotic medication, continue artane at current dose 3. Unlikley to be PD, no need for sinemet at this time Thanking you so gisele Orta MD
[2018-05-12 15:41] VITALS: BP 128/69; PULSE 74; TEMP 98.8
== END 2018-05-12 16:39 | DRG 101 ==
LOC: JER 10:52 → JERBED 16:55 → J4W 20:45
PROVIDERS: ADMIT Internal Medicine; ATTEND Internal Medicine
DX: G40.909 Epilepsy, unspecified, not intractable, without status epilepticus (principal); F20.9 Schizophrenia, unspecified; E11.9 Type 2 diabetes mellitus without complications; I10 Essential (primary) hypertension; R74.8 Abnormal levels of other serum enzymes; R50.9 Fever, unspecified; G24.9 Dystonia, unspecified; G20 Parkinson's disease
CPT/HCPCS: 36415; 70450-TC; 71045-TC-FY; 72125-TC; 80053; 80177; 80185; 81003; 82550; 82803; 82962; 83605; 83735; 84484; 85025; 85610; 85730; 87040; 87086; 93005; 93010; 93306-TC; 99284-25; J7030

== ENCOUNTER 2021-01-04 12:10 | Observation (INO) | payer OTHER ==
[2021-01-04 12:28] VITALS: BMI 25.0
[2021-01-04] MEDS ORDERED: ACETAMINOPHEN 1000 MG/100 ML VIAL IVPB ONE (12:42)
[2021-01-04] MEDS ORDERED: levETIRAcetam 500 MG/5 ML INJECTION VIAL IVPB ONE ×2 (12:42→13:52)
[2021-01-04 13:43] LABS: EOS % 0.5 % (0-4.5); HEMATOCRIT 33.7 % (32.4-45.2); LYMPH % 28.4 % (8-40); MCH 29.4 pg (25.7-33.7); MCHC 32.6 g/dl (32.0-36.0); MEAN CELL VOLUME 90.3 fl (80-96); MEAN PLT VOLUME 7.5 fl (7.5-11.1); MONO % 9.8 % (3.8-10.2); NEUT % 60.3 % (42.8-82.8); PLATELET COUNT 349 10^3/uL (134-434); RBC 3.73 M/mm3 (3.60-5.2); RDW 13.6 % (11.6-15.6); WHITE BLOOD COUNT 5.2 K/mm3 (4.0-10.0)
[2021-01-04] MEDS ORDERED: ACETAMINOPHEN INJECTION 100 ML IVPB ONE (13:52)
[2021-01-04 13:54] LABS: BLOOD UREA NITROGEN 9.9 mg/dL (7-18); CALCIUM 8.9 mg/dL (8.5-10.1)
[2021-01-04 13:55] LABS: MAGNESIUM 2.2 mg/dL (1.8-2.4)
[2021-01-04 13:58] LABS: CREATININE 0.9 mg/dL (0.55-1.3)
[2021-01-04 13:59] LABS: BILIRUBIN,TOTAL 0.2 mg/dL (0.2-1); TOT PROT 7.5 g/dl (6.4-8.2)
[2021-01-04 14:06] LABS: INR 1.01 (0.83-1.09); PROTHROMBIN TIME (PATIENT) 11.3 SEC (9.7-13.0)
[2021-01-04 14:09] LABS: ACTIVATED PTT 26.9 SECONDS (25.2-36.5)
[2021-01-04 15:50] LABS: EPI CELLS 4 /uL (0-25.1); HYALINE CASTS 1 /uL (0-3.1); PH,URINE 6.5 (5.0-8.0); URINE APPEARANCE CLEAR; URINE BACTERIA 7 /uL (0-1359); URINE BILIRUBIN NEGATIVE (NEGATIVE); URINE COLOR YELLOW; URINE GLUCOSE (UA) NEGATIVE (NEGATIVE); URINE KETONE NEGATIVE (NEGATIVE); URINE LEUK ESTERASE NEGATIVE (NEGATIVE); URINE NITRITE NEGATIVE (NEGATIVE); URINE PROTEIN 1+ (NEGATIVE); URINE RBC 9 /uL (0-23.9); URINE UROBILINOGEN 0.2 mg/dL (0.2-1.0); URINE WBC 4 /uL (0-25.8)
[2021-01-04] MEDS ORDERED: ACETAMINOPHEN 325 MG TABLET (FP) PO PRN (20:55)
[2021-01-04] MEDS ORDERED: DOCUSATE SODIUM 100 MG CAPSULE (FP) PO PRN (20:55)
[2021-01-04] MEDS ORDERED: levETIRAcetam 500 MG TABLET (FP) PO SCH (22:00)
[2021-01-05] MEDS: TRIHEXYPHENIDYL HCL 2 MG TABLET PO SCH ×3 (06:32→14:24)
[2021-01-05] MEDS: CARBIDOPA/LEVODOPA 25/100 TABLET (FP) PO SCH ×2 (06:33→09:06)
[2021-01-05] MEDS: PHENYTOIN NA EXTENDED 100 MG CAPSULE (FP) PO SCH ×3 (06:33→14:28)
[2021-01-05] MEDS: ENTACAPONE 200 MG TABLET PO SCH ×2 (06:33→09:06)
[2021-01-05] MEDS ORDERED: cloNIDine HCL 0.1 MG TABLET ONE (08:57)
[2021-01-05] MEDS ORDERED: ENOXAPARIN NA (PORCINE) 40 MG/0.4 ML DISP.SYRIN SQ ONE (08:57)
[2021-01-05] MEDS ORDERED: glipiZIDE 5 MG TABLET (FP) ONE (08:57)
[2021-01-05] MEDS ORDERED: levETIRAcetam 500 MG TABLET (FP) PO ONE (08:57)
[2021-01-05] MEDS ORDERED: PHENYTOIN NA EXTENDED 100 MG CAPSULE (FP) ONE ×2 (08:57→14:25)
[2021-01-05] MEDS ORDERED: ASPIRIN 81 MG CHEWABLE TABLETS ONE (08:57)
[2021-01-05] MEDS ORDERED: CARBIDOPA/LEVODOPA 25/100 TABLET (FP) ONE (09:02)
[2021-01-05] MEDS: glipiZIDE 5 MG TABLET (FP) PO SCH (09:05)
[2021-01-05] MEDS: INSULIN SLIDING SCALE (NOVOLOG) 1 VIAL SQ SCH ×2 (09:05→17:38)
[2021-01-05] MEDS: ASPIRIN 81 MG CHEWABLE TABLETS PO SCH (09:05)
[2021-01-05] MEDS: ENOXAPARIN NA (PORCINE) 40 MG/0.4 ML DISP.SYRIN SQ SCH (09:06)
[2021-01-05] MEDS: ESCITALOPRAM OXALATE 20 MG TABLET PO SCH (09:06)
[2021-01-05] MEDS: cloNIDine HCL 0.1 MG TABLET PO SCH (09:06)
[2021-01-05] MEDS: amLODIPine BESYLATE 5 MG TABLET (FP) PO SCH (09:06)
[2021-01-05] MEDS ORDERED: levETIRAcetam 500 MG TABLET (FP) PO SCH (10:00)
[2021-01-05] MEDS ORDERED: NITROFURANTOIN MACROCRYSTAL 50 MG CAPSULE (FP) ONE (14:25)
[2021-01-05] MEDS: NITROFURANTOIN MACROCRYSTAL 50 MG CAPSULE (FP) PO SCH (14:29)
[2021-01-05 17:11] VITALS: TEMP 98.8
[2021-01-06] MEDS ORDERED: NITROFURANTOIN MACROCRYSTAL 50 MG CAPSULE (FP) ONE ×3 (02:40→20:47)
[2021-01-06] MEDS ORDERED: PHENYTOIN NA EXTENDED 100 MG CAPSULE (FP) ONE ×2 (02:40→06:02)
[2021-01-06] MEDS ORDERED: levETIRAcetam 500 MG TABLET (FP) PO ONE ×2 (02:41→10:51)
[2021-01-06] MEDS: levETIRAcetam 500 MG TABLET (FP) PO SCH ×2 (02:48→11:03)
[2021-01-06] MEDS: PHENYTOIN NA EXTENDED 100 MG CAPSULE (FP) PO SCH ×2 (02:48→06:12)
[2021-01-06] MEDS: NITROFURANTOIN MACROCRYSTAL 50 MG CAPSULE (FP) PO SCH ×5 (02:48→20:25)
[2021-01-06] MEDS ORDERED: glipiZIDE 5 MG TABLET (FP) ONE (06:02)
[2021-01-06] MEDS: glipiZIDE 5 MG TABLET (FP) PO SCH (06:39)
[2021-01-06] MEDS: INSULIN SLIDING SCALE (NOVOLOG) 1 VIAL SQ SCH ×2 (07:48→19:18)
[2021-01-06] MEDS ORDERED: cloNIDine HCL 0.1 MG TABLET ONE (10:51)
[2021-01-06] MEDS ORDERED: amLODIPine BESYLATE 5 MG TABLET (FP) ONE (10:51)
[2021-01-06] MEDS ORDERED: ASPIRIN 81 MG CHEWABLE TABLETS ONE (10:51)
[2021-01-06] MEDS ORDERED: ESCITALOPRAM OXALATE 10 MG TABLET ONE (10:52)
[2021-01-06] MEDS ORDERED: ENOXAPARIN NA (PORCINE) 40 MG/0.4 ML DISP.SYRIN SQ ONE (10:52)
[2021-01-06] MEDS: ASPIRIN 81 MG CHEWABLE TABLETS PO SCH (11:02)
[2021-01-06] MEDS: amLODIPine BESYLATE 5 MG TABLET (FP) PO SCH (11:03)
[2021-01-06] MEDS: ENOXAPARIN NA (PORCINE) 40 MG/0.4 ML DISP.SYRIN SQ SCH (11:03)
[2021-01-06] MEDS: cloNIDine HCL 0.1 MG TABLET PO SCH (11:03)
[2021-01-06] MEDS: ESCITALOPRAM OXALATE 20 MG TABLET PO SCH (11:03)
[2021-01-06 20:52] VITALS: BP 170/88; PULSE 68
[2021-01-06] MEDS ORDERED: PHENYTOIN NA EXTENDED 100 MG CAPSULE (FP) PO SCH (22:00)
== END 2021-01-06 21:00 ==
LOC: JER 12:10 → JERBED 17:38
PROVIDERS: ADMIT Internal Medicine; ATTEND Internal Medicine
PROC: 3E033NZ Introduction of Analgesics, Hypnotics, Sedatives into Peripheral Vein, Percutaneous Approach (ICD-10-PCS; principal; 2021-01-04)
PROC: 3E033NZ Introduction of Analgesics, Hypnotics, Sedatives into Peripheral Vein, Percutaneous Approach (ICD-10-PCS; 2021-01-04)
PROC: 3E023GC Introduction of Other Therapeutic Substance into Muscle, Percutaneous Approach (ICD-10-PCS; 2021-01-04)
DX: G40.909 Epilepsy, unspecified, not intractable, without status epilepticus (principal); G20 Parkinson's disease; F20.9 Schizophrenia, unspecified; E11.9 Type 2 diabetes mellitus without complications; I10 Essential (primary) hypertension; K21.9 Gastro-esophageal reflux disease without esophagitis; G24.8 Other dystonia; Z91.14 Patient's other noncompliance with medication regimen; R74.8 Abnormal levels of other serum enzymes
CPT/HCPCS: 36415; 70450-TC; 70486-TC; 71045-TC-FY; 72125-TC; 72128-TC; 73030-TC-LT-FY; 73060-TC-LT-FY; 80053; 80177; 81003; 82550; 82553; 82962; 83735; 84484; 85025; 85610; 85730; 87086; 87186; 93005; 93010; 96372; 96374; 96375; 99285-25; C9803; G0378; J0131; J0735; U0003; U0005

== ENCOUNTER 2022-07-09 06:58 | Inpatient (IN) | payer OTHER ==
[2022-07-09 07:18] VITALS: BMI 23.6
[2022-07-09] MEDS ORDERED: amLODIPine BESYLATE 5 MG TABLET (FP) ONE (09:21)
[2022-07-09] MEDS ORDERED: cloNIDine HCL 0.1 MG TABLET ONE (09:22)
[2022-07-09] MEDS ORDERED: amLODIPine BESYLATE 5 MG TABLET (FP) PO ONE (09:28)
[2022-07-09] MEDS ORDERED: cloNIDine HCL 0.1 MG TABLET PO ONE (09:28)
[2022-07-09 11:53] LABS: EPI CELLS 4 /uL (0-25.1); HYALINE CASTS 0 /uL (0-3.1); PH,URINE 7.5 (5.0-8.0); URINE APPEARANCE CLEAR; URINE BACTERIA 4 /uL (0-1359); URINE BILIRUBIN NEGATIVE (NEGATIVE); URINE COLOR YELLOW; URINE GLUCOSE (UA) NEGATIVE (NEGATIVE); URINE KETONE TRACE (NEGATIVE); URINE LEUK ESTERASE NEGATIVE (NEGATIVE); URINE NITRITE NEGATIVE (NEGATIVE); URINE PROTEIN 2+ (NEGATIVE); URINE RBC 42 /uL (0-23.9); URINE UROBILINOGEN 0.2 mg/dL (0.2-1.0); URINE WBC 2 /uL (0-25.8)
[2022-07-09] MEDS ORDERED: ACETAMINOPHEN INJECTION 100 ML IVPB ONE (12:32)
[2022-07-09 13:11] LABS: BASO % 0.4 % (0-2.0); EOS % 0.1 % (0-4.5); HEMOGLOBIN 10.9 GM/dL (10.7-15.3); LYMPH % 15.5 % (8-40); MCH 29.7 pg (25.7-33.7); MCHC 32.9 g/dl (32.0-36.0); MEAN CELL VOLUME 90.2 fl (80-96); MONO % 6.7 % (3.8-10.2); NEUT % 77.3 % (42.8-82.8); PLATELET COUNT 471 10^3/uL (134-434); RBC 3.66 M/mm3 (3.60-5.2); RDW 13.6 % (11.6-15.6); WHITE BLOOD COUNT 8.5 K/mm3 (4.0-10.0)
[2022-07-09 13:28] LABS: POTASSIUM 4.3 mmol/L (3.5-5.1)
[2022-07-09 13:30] LABS: CALCIUM 9.2 mg/dL (8.5-10.1)
[2022-07-09 13:31] LABS: ALBUMIN 4.1 g/dl (3.4-5.0); BLOOD UREA NITROGEN 15.5 mg/dL (7-18)
[2022-07-09 13:34] LABS: CREATININE 0.8 mg/dL (0.55-1.3)
[2022-07-09 13:36] LABS: BILIRUBIN,TOTAL 0.4 mg/dL (0.2-1); TOT PROT 7.9 g/dl (6.4-8.2)
[2022-07-09] MEDS ORDERED: PIPERACILLIN/TAZOB 2.25 GM 2.25 GM in DEXTROSE 5%-WATER - 50 ML IVPB ONE (13:45)
[2022-07-09] MEDS ORDERED: VANCOMYCIN 1 GM in D5W (PRE-DOCKED) 1,000 MG/250 ML (RESTRICTED TO ID ONLY IVPB ONE (13:46)
[2022-07-09] MEDS ORDERED: VANCOMYCIN/WATER FOR INJ (PEG) 1,000 MG/200 ML BAG IVPB ONE (13:52)
[2022-07-09] MEDS ORDERED: PIPERACILLIN/TAZOB 2.25 GM 2.25 GM/50 ML BAG IVPB ONE (13:52)
[2022-07-09] MEDS ORDERED: LACTATED RINGERS SOLUTION 1000 ML INFUS.BAG IV ONE (14:04)
[2022-07-09] MEDS ORDERED: ATORVASTATIN CA 10 MG TABLET (FP) PO ONE (23:20)
[2022-07-09] MEDS ORDERED: PIPERACILLIN/TAZOB 3.375 GM 3.375 GM in DEXTROSE 5%-WATER - 50 ML IVPB SCH (23:30)
[2022-07-10] MEDS: PIPERACILLIN/TAZOB 3.375 GM 3.375 GM in DEXTROSE 5%-WATER - 50 ML IVPB SCH ×3 (01:13→09:36)
[2022-07-10] MEDS: levETIRAcetam 500 MG TABLET (FP) PO SCH ×2 (06:25→22:12)
[2022-07-10] MEDS: amLODIPine BESYLATE 5 MG TABLET (FP) PO SCH (09:26)
[2022-07-10] MEDS: LOSARTAN POTASSIUM 50 MG TABLET PO SCH (09:26)
[2022-07-10] MEDS: cloNIDine HCL 0.1 MG TABLET PO SCH (09:26)
[2022-07-10] MEDS: ASPIRIN 81 MG CHEWABLE TABLETS PO SCH (09:26)
[2022-07-10] MEDS: ESCITALOPRAM OXALATE 20 MG TABLET PO SCH (09:26)
[2022-07-10] MEDS: GABAPENTIN 300 MG CAPSULE PO SCH (09:26)
[2022-07-10] MEDS: ARIPiprazole 15 MG TABLET PO SCH (09:35)
[2022-07-10] MEDS: BENZTROPINE MESYLATE 0.5 MG TABLET (FP) PO SCH ×2 (09:35→22:10)
[2022-07-10] MEDS: CEFTRIAXONE 1 GM in DEXTROSE 5%-WATER - 50 ML IVPB SCH (11:23)
[2022-07-10] MEDS: ATORVASTATIN CA 10 MG TABLET (FP) PO SCH (22:10)
[2022-07-11] MEDS: levETIRAcetam 500 MG TABLET (FP) PO SCH ×2 (06:12→21:32)
[2022-07-11] MEDS: amLODIPine BESYLATE 5 MG TABLET (FP) PO SCH (09:03)
[2022-07-11] MEDS: LOSARTAN POTASSIUM 50 MG TABLET PO SCH (09:03)
[2022-07-11] MEDS: GABAPENTIN 300 MG CAPSULE PO SCH (09:03)
[2022-07-11] MEDS: cloNIDine HCL 0.1 MG TABLET PO SCH (09:03)
[2022-07-11] MEDS: ASPIRIN 81 MG CHEWABLE TABLETS PO SCH (09:03)
[2022-07-11] MEDS: ARIPiprazole 15 MG TABLET PO SCH (09:04)
[2022-07-11] MEDS: BENZTROPINE MESYLATE 0.5 MG TABLET (FP) PO SCH ×2 (09:04→21:32)
[2022-07-11] MEDS: ESCITALOPRAM OXALATE 20 MG TABLET PO SCH (09:04)
[2022-07-11] MEDS: CEFTRIAXONE 1 GM in DEXTROSE 5%-WATER - 50 ML IVPB SCH (09:05)
[2022-07-11] MEDS ORDERED: amLODIPine BESYLATE 5 MG TABLET (FP) PO SCH (13:26)
[2022-07-11] MEDS ORDERED: amLODIPine BESYLATE 5 MG TABLET (FP) PO ONE (13:27)
[2022-07-11] MEDS: ATORVASTATIN CA 10 MG TABLET (FP) PO SCH (21:32)
[2022-07-12] MEDS: levETIRAcetam 500 MG TABLET (FP) PO SCH ×2 (06:00→21:46)
[2022-07-12] MEDS: cloNIDine HCL 0.1 MG TABLET PO SCH (09:47)
[2022-07-12] MEDS: ESCITALOPRAM OXALATE 20 MG TABLET PO SCH (09:47)
[2022-07-12] MEDS: ASPIRIN 81 MG CHEWABLE TABLETS PO SCH (09:47)
[2022-07-12] MEDS: GABAPENTIN 300 MG CAPSULE PO SCH (09:47)
[2022-07-12] MEDS: LOSARTAN POTASSIUM 50 MG TABLET PO SCH (09:47)
[2022-07-12] MEDS: amLODIPine BESYLATE 10 MG TABLET (FP) PO SCH (09:47)
[2022-07-12] MEDS: BENZTROPINE MESYLATE 0.5 MG TABLET (FP) PO SCH ×2 (09:48→21:46)
[2022-07-12] MEDS: CEFTRIAXONE 1 GM in DEXTROSE 5%-WATER - 50 ML IVPB SCH (09:48)
[2022-07-12] MEDS: ARIPiprazole 15 MG TABLET PO SCH (09:48)
[2022-07-12 20:24] VITALS: RESP 18
[2022-07-12] MEDS: ATORVASTATIN CA 10 MG TABLET (FP) PO SCH (21:46)
[2022-07-13] MEDS: levETIRAcetam 500 MG TABLET (FP) PO SCH (07:39)
[2022-07-13] MEDS: cloNIDine HCL 0.1 MG TABLET PO SCH (09:51)
[2022-07-13] MEDS: ASPIRIN 81 MG CHEWABLE TABLETS PO SCH (09:51)
[2022-07-13] MEDS: GABAPENTIN 300 MG CAPSULE PO SCH (09:51)
[2022-07-13] MEDS: amLODIPine BESYLATE 10 MG TABLET (FP) PO SCH (09:51)
[2022-07-13] MEDS: ESCITALOPRAM OXALATE 20 MG TABLET PO SCH (09:51)
[2022-07-13] MEDS: LOSARTAN POTASSIUM 50 MG TABLET PO SCH (09:51)
[2022-07-13] MEDS: CEFTRIAXONE 1 GM in DEXTROSE 5%-WATER - 50 ML IVPB SCH (09:52)
[2022-07-13] MEDS: ARIPiprazole 15 MG TABLET PO SCH (09:52)
[2022-07-13] MEDS: BENZTROPINE MESYLATE 0.5 MG TABLET (FP) PO SCH (09:52)
[2022-07-13 12:08] VITALS: BP 132/52; PULSE 65; TEMP 98.3
== END 2022-07-13 13:18 | DRG 864 ==
LOC: JER 06:58 → JERBED 14:04 → J4W 17:51
PROVIDERS: ADMIT Internal Medicine; ATTEND Internal Medicine
DX: R50.9 Fever, unspecified (principal); I24.8 Other forms of acute ischemic heart disease; I42.8 Other cardiomyopathies; K86.1 Other chronic pancreatitis; J98.11 Atelectasis; S01.112A Laceration without foreign body of left eyelid and periocular area, initial encounter; I10 Essential (primary) hypertension; F20.9 Schizophrenia, unspecified; J43.9 Emphysema, unspecified; E11.9 Type 2 diabetes mellitus without complications; R91.1 Solitary pulmonary nodule; F31.9 Bipolar disorder, unspecified; W06.XXXA Fall from bed, initial encounter; Y93.89 Activity, other specified; Y92.129 Unspecified place in nursing home as the place of occurrence of the external cause; Y99.8 Other external cause status; G20 Parkinson's disease; G40.909 Epilepsy, unspecified, not intractable, without status epilepticus; J02.9 Acute pharyngitis, unspecified
CPT/HCPCS: 0241U-QW; 36415; 70450-TC; 71045-TC-FY; 71260-TC; 72125-TC; 72170-TC-FY; 73030-TC-RT-FY; 73502-TC-RT-FY; 73552-TC-RT-FY; 74177-TC; 80053; 81003; 83605; 84484; 85025; 87040; 87086; 87635; 87651; 93005; 93010; 99285-25; Q9967

== ENCOUNTER 2023-01-18 15:22 | Inpatient (IN) | payer OTHER ==
[2023-01-18] MEDS ORDERED: levETIRAcetam 500 MG/5 ML INJECTION VIAL IVPB ONE ×2 (16:47→17:33)
[2023-01-18 17:26] LABS: BASO % 0.8 % (0-2.0); EOS % 0.7 % (0-4.5); HEMATOCRIT 32.2 % (32.4-45.2); HEMOGLOBIN 10.3 GM/dL (10.7-15.3); LYMPH % 30.3 % (8-40); MEAN CELL VOLUME 90.7 fl (80-96); MEAN PLT VOLUME 8.4 fl (7.5-11.1); MONO % 13.5 % (3.8-10.2); NEUT % 54.7 % (42.8-82.8); PLATELET COUNT 282 10^3/uL (134-434); RBC 3.55 M/mm3 (3.60-5.2); RDW 13.2 % (11.6-15.6); WHITE BLOOD COUNT 6.1 K/mm3 (4.0-10.0)
[2023-01-18] MEDS ORDERED: VANCOMYCIN 1,000 MG in DEXTROSE 5%-WATER - 250 ML IVPB ONE (17:42)
[2023-01-18] MEDS ORDERED: CIPROFLOXACIN 400 MG/D5W 400 MG/200 ML IVPB IVPB ONE (17:43)
[2023-01-18] MEDS ORDERED: PIPERACILLIN/TAZOB 4.5 GM 4.5 GM in DEXTROSE 5%-WATER 100 ML IVPB ONE (17:43)
[2023-01-18 17:58] LABS: POTASSIUM 3.6 mmol/L (3.5-5.1)
[2023-01-18 18:00] LABS: ALBUMIN 3.6 g/dl (3.4-5.0); BLOOD UREA NITROGEN 12.6 mg/dL (7-18); CALCIUM 8.6 mg/dL (8.5-10.1)
[2023-01-18 18:04] LABS: CREATININE 1.1 mg/dL (0.55-1.3)
[2023-01-18 18:05] LABS: BILIRUBIN,TOTAL 0.3 mg/dL (0.2-1); TOT PROT 6.7 g/dl (6.4-8.2)
[2023-01-18] MEDS ORDERED: PIPERACILLIN/TAZOB 4.5 GM 4.5 GM/100 ML BAG IVPB ONE (18:18)
[2023-01-18 18:27] LABS: PH,URINE 7.5 (5.0-8.0); URINE APPEARANCE CLEAR; URINE BILIRUBIN NEGATIVE (NEGATIVE); URINE COLOR YELLOW; URINE GLUCOSE (UA) 1+ (NEGATIVE); URINE KETONE NEGATIVE (NEGATIVE); URINE LEUK ESTERASE NEGATIVE (NEGATIVE); URINE NITRITE NEGATIVE (NEGATIVE); URINE PROTEIN TRACE (NEGATIVE); URINE UROBILINOGEN 0.2 mg/dL (0.2-1.0)
[2023-01-18] MEDS ORDERED: VANCOMYCIN 1 GRAM (PRE-DOCKED) 1,000 MG/250 ML BAG IVPB ONE (21:51)
[2023-01-19] MEDS: levETIRAcetam 500 MG TABLET (FP) PO SCH (06:14)
[2023-01-19 07:22] VITALS: BMI 21.4
[2023-01-19] MEDS: PIPERACILLIN/TAZOB 3.375 GM 3.375 GM in DEXTROSE 5%-WATER - 50 ML IVPB SCH ×2 (07:54→10:03)
[2023-01-19 08:31] LABS: HEMATOCRIT 35.9 % (32.4-45.2); HEMOGLOBIN 11.6 GM/dL (10.7-15.3); MCH 29.1 pg (25.7-33.7); MCHC 32.2 g/dl (32.0-36.0); MEAN CELL VOLUME 90.4 fl (80-96); MEAN PLT VOLUME 8.5 fl (7.5-11.1); PLATELET COUNT 332 10^3/uL (134-434); POTASSIUM 3.6 mmol/L (3.5-5.1); RBC 3.97 M/mm3 (3.60-5.2); RDW 13.7 % (11.6-15.6); WHITE BLOOD COUNT 5.2 K/mm3 (4.0-10.0)
[2023-01-19 08:33] LABS: CALCIUM 9.1 mg/dL (8.5-10.1)
[2023-01-19 08:34] LABS: ALBUMIN 3.9 g/dl (3.4-5.0); BLOOD UREA NITROGEN 11.2 mg/dL (7-18); MAGNESIUM 1.6 mg/dL (1.8-2.4)
[2023-01-19 08:37] LABS: CREATININE 1.1 mg/dL (0.55-1.3)
[2023-01-19 08:39] LABS: BILIRUBIN,TOTAL 0.5 mg/dL (0.2-1); TOT PROT 7.4 g/dl (6.4-8.2)
[2023-01-19] MEDS: ARIPiprazole 15 MG TABLET PO SCH (10:02)
[2023-01-19] MEDS: LOSARTAN POTASSIUM 50 MG TABLET PO SCH (10:02)
[2023-01-19] MEDS: amLODIPine BESYLATE 5 MG TABLET (FP) PO SCH (10:02)
[2023-01-19] MEDS ORDERED: levETIRAcetam XR 500 MG TAB PO SCH (22:00)
[2023-01-19] MEDS ORDERED: ATORVASTATIN CA 10 MG TABLET (FP) PO SCH (22:00)
[2023-01-20] MEDS: levETIRAcetam 500 MG TABLET (FP) PO SCH (06:11)
[2023-01-20] MEDS: PIPERACILLIN/TAZOB 3.375 GM 3.375 GM in DEXTROSE 5%-WATER - 50 ML IVPB SCH (08:31)
[2023-01-20] MEDS: LOSARTAN POTASSIUM 50 MG TABLET PO SCH (10:33)
[2023-01-20] MEDS: amLODIPine BESYLATE 5 MG TABLET (FP) PO SCH (10:33)
[2023-01-20] MEDS: ARIPiprazole 15 MG TABLET PO SCH (10:33)
[2023-01-20] MEDS: ACETAMINOPHEN 325 MG TABLET (FP) PO PRN ×2 (11:48→17:37)
[2023-01-20] MEDS: LIDOCAINE 4% PATCH TP SCH ×2 (11:48→11:49)
[2023-01-20 15:05] VITALS: BP 139/76; PULSE 68; RESP 18; TEMP 99.4
[2023-01-20] MEDS ORDERED: LIDOCAINE PATCH REMOVAL MC SCH (22:00)
== END 2023-01-20 18:15 | DRG 101 ==
LOC: JER 15:22 → JERBED 17:02 → J7W 01-19 04:43 → OBSVTOIN 01-19 08:43
PROVIDERS: ADMIT Internal Medicine; ATTEND Internal Medicine
DX: G40.909 Epilepsy, unspecified, not intractable, without status epilepticus (principal); F20.89 Other schizophrenia; I42.8 Other cardiomyopathies; G24.8 Other dystonia; E11.9 Type 2 diabetes mellitus without complications; I10 Essential (primary) hypertension; E78.5 Hyperlipidemia, unspecified; F31.9 Bipolar disorder, unspecified; G20.A1 Parkinson's disease without dyskinesia, without mention of fluctuations; K21.9 Gastro-esophageal reflux disease without esophagitis; K59.00 Constipation, unspecified; H40.9 Unspecified glaucoma; D64.9 Anemia, unspecified; S00.81XA Abrasion of other part of head, initial encounter; W18.39XA Other fall on same level, initial encounter; Y92.098 Other place in other non-institutional residence as the place of occurrence of the external cause; Y99.8 Other external cause status
CPT/HCPCS: 0241U-QW; 36415; 70450-TC; 71045-TC-FY; 80053; 81003; 82962; 83735; 85025; 85027; 87040; 87086; 93005; 93010; 99285-25; G0378